=== PATIENT | male | born 1945 | race Caucasian/White ===

== ENCOUNTER 2016-12-22 11:37 | Outpatient (CLI) | payer OTHER ==
[~2016-12-22 11:37] MED LIST: ASPI-1063 PO; CLOP75TA2 PO; COR6.25 PO; EZET10TA PO; LIP80 PO; RANO500T2 PO
== END 2016-12-22 17:54 | disposition home or self-care (01) ==
LOC: SRD 11:37
PROVIDERS: ATTEND Family Medicine
DX: I25.119 Atherosclerotic heart disease of native coronary artery with unspecified angina pectoris (principal); I51.7 Cardiomegaly; J44.9 Chronic obstructive pulmonary disease, unspecified
CPT/HCPCS: 71020-TC

== ENCOUNTER 2017-02-02 22:10 | Inpatient (IN) | payer OTHER ==
[~2017-02-02] VITALS: Ht 170.2 cm; Wt 73.9 kg
[2017-02-02 22:21] VITALS: BP_SYST 106
[2017-02-02] MEDS ORDERED: IPRATROPIUM/ALBUTEROL SULFATE 3 ML AMPUL.NEB INH ONE (22:45)
[2017-02-02] MEDS ORDERED: methylPREDNISolone SOD SUCC/PF 62.5 MG/ML VIAL IVP ONE (22:45)
[2017-02-02 22:51] LABS: BASOPHILS # (AUTO) 0.1 K/uL (0.0-0.2); BASOPHILS % (AUTO) 1.2 % (0.0-2.0); EOSINOPHILS # (AUTO) 0.2 K/uL (0.0-0.4); EOSINOPHILS % (AUTO) 2.1 % (0.0-4.0); HEMATOCRIT 46.3 % (36-54); HEMOGLOBIN 15.3 g/dL (14.0-18.0); LYMPHOCYTES # (AUTO) 2.2 K/uL (1.0-5.5); LYMPHOCYTES % (AUTO) 26.4 % (20.5-51.5); MEAN CORPUSCULAR HEMOGLOBIN 32 pg (27-31); MEAN CORPUSCULAR HGB CONC 33 % (32-36); MEAN CORPUSCULAR VOLUME 95 fL (79.0-98.0); MONOCYTES # (AUTO) 0.9 K/uL (0.0-1.0); MONOCYTES % (AUTO) 10.6 % (1.7-9.3); NEUTROPHILS # (AUTO) 4.8 K/uL (1.8-7.7); NEUTROPHILS % (AUTO) 59.7 % (40.0-70.0); PLATELET COUNT (AUTO) 306 K/uL (130-430); RED BLOOD CELL COUNT(AUTO) 4.88 MIL/uL (4.2-6.2); WHITE BLOOD COUNT (AUTO) 8.2 K/uL (4.8-10.8)
[2017-02-02 23:04] LABS: ANION GAP 10 (5-15); CALCIUM 9.4 mg/dL (8.4-11.0); CHLORIDE 101 mmol/L (98-107); CREATININE 0.76 mg/dL (0.55-1.30); GLUCOSE 113 mg/dL (70-99); POTASSIUM 3.9 mmol/L (3.5-5.1); SODIUM SERUM 133 mmol/L (136-145); UREA NITROGEN, BLOOD 14 mg/dL (8-21)
[2017-02-02 23:08] LABS: ALANINE AMINOTRANSFERASE 21 U/L (12-78); ALBUMIN 3.4 g/dL (3.4-4.8); ASPARTATE AMINOTRANSFERASE 18 U/L (10-37); TOTAL BILIRUBIN 0.4 mg/dL (0.0-1.0)
[2017-02-02] MEDS ORDERED: MORPHINE 4 MG/ML INJ. SYRINGE IVP ONE (23:30)
[2017-02-03] VITALS (16 sets, daily range): BP systolic 109–167
[2017-02-03] MEDS ORDERED: NITROGLYCERIN 0.4 MG TAB.SUBL SL ONE
[2017-02-03] MEDS ORDERED: NITR0.4T6 SL (00:06)
[2017-02-03] MEDS ORDERED: INHALER (00:06)
[2017-02-03] MEDS ORDERED: IPRATROPIUM BROM 0.5 MG/2.5 ML VIAL.NEB (ATROVENT) INH PRN ×2 (01:30→09:15)
[2017-02-03] MEDS ORDERED: *LOVENOX 1MG/KG Q12H/PHARMACY XX ONE (01:30)
[2017-02-03] MEDS ORDERED: LEVALBUTEROL HCL 0.63 MG/3 ML VIAL.NEB INH PRN (01:30)
[2017-02-03] MEDS ORDERED: ACETAMINOPHEN 325 MG TABLET PO PRN (01:30)
[2017-02-03] MEDS ORDERED: HYDROcodone/ACETAMIN 5-325 MG TAB (NORCO/ VICODIN) PO PRN (01:30)
[2017-02-03] MEDS ORDERED: NITROGLYCERIN 0.4 MG TAB.SUBL SL PRN (01:30)
[2017-02-03] MEDS ORDERED: ENOXAPARIN SODIUM 100 MG/ML SYRINGE SUBCUT ONE (01:45)
[2017-02-03] MEDS ORDERED: DILTIAZEM HCL 30 MG TABLET PO ONE (01:45)
[2017-02-03] MEDS ORDERED: FLU VACC QS 2017-18(36MOS+)/PF 0.5 ML/SYR SYRINGE I.M. PRN (02:15)
[2017-02-03] MEDS ORDERED: FLU VACC QS 2017-18(36MOS+)/PF 0.5 ML/SYR SYRINGE I.M. ONE (02:34)
[2017-02-03] MEDS: DILTIAZEM HCL 30 MG TABLET PO SCH ×4 (05:33→23:39)
[2017-02-03] MEDS ORDERED: methylPREDNISolone SOD SUCC/PF 62.5 MG/ML VIAL IVP SCH (06:00)
[2017-02-03 07:09] LABS: ANION GAP 12 (5-15); CALCIUM 8.7 mg/dL (8.4-11.0); CHLORIDE 103 mmol/L (98-107); CREATININE 0.83 mg/dL (0.55-1.30); GLUCOSE 162 mg/dL (70-99); POTASSIUM 4.1 mmol/L (3.5-5.1); SODIUM SERUM 138 mmol/L (136-145); UREA NITROGEN, BLOOD 12 mg/dL (8-21)
[2017-02-03 07:15] LABS: BASOPHILS % (AUTO) 0.1 % (0.0-2.0); EOSINOPHILS % (AUTO) 0.2 % (0.0-4.0); HEMATOCRIT 47.8 % (36-54); HEMOGLOBIN 15.5 g/dL (14.0-18.0); LYMPHOCYTES # (AUTO) 0.8 K/uL (1.0-5.5); LYMPHOCYTES % (AUTO) 10.7 % (20.5-51.5); MEAN CORPUSCULAR HEMOGLOBIN 31 pg (27-31); MEAN CORPUSCULAR HGB CONC 32 % (32-36); MEAN CORPUSCULAR VOLUME 96 fL (79.0-98.0); MONOCYTES # (AUTO) 0.1 K/uL (0.0-1.0); MONOCYTES % (AUTO) 0.8 % (1.7-9.3); NEUTROPHILS # (AUTO) 6.3 K/uL (1.8-7.7); NEUTROPHILS % (AUTO) 88.2 % (40.0-70.0); PLATELET COUNT (AUTO) 310 K/uL (130-430); RED BLOOD CELL COUNT(AUTO) 4.99 MIL/uL (4.2-6.2); RED CELL DISTRIBUTION WIDTH 11.8 % (9.0-15.0); WHITE BLOOD COUNT (AUTO) 7.2 K/uL (4.8-10.8)
[2017-02-03 07:19] LABS: ALANINE AMINOTRANSFERASE 23 U/L (12-78); ALBUMIN 3.6 g/dL (3.4-4.8); ASPARTATE AMINOTRANSFERASE 20 U/L (10-37); TOTAL BILIRUBIN 0.5 mg/dL (0.0-1.0)
[2017-02-03] MEDS: PANTOPRAZOLE SODIUM 40 MG TAB PO SCH (08:30)
[2017-02-03] MEDS: CARVEDILOL 6.25 MG TABLET (COREG) PO SCH (08:30)
[2017-02-03] MEDS: EZETIMIBE 10 MG TABLET PO SCH (08:30)
[2017-02-03] MEDS: CLOPIDOGREL BISULFATE 75 MG TABLET PO SCH (08:30)
[2017-02-03] MEDS: ASPIRIN 81 MG TABLET(ECOTRIN) PO SCH (08:30)
[2017-02-03] MEDS: ATORVASTATIN 20 MG TABLET PO SCH (08:32)
[2017-02-03] MEDS: RANOLAZINE 500 MG TAB.SR.12H PO SCH ×2 (08:33→21:38)
[2017-02-03] MEDS ORDERED: DEXTROSE 50% JECT 50 ML DISP.SYRIN IVP PRN (08:45)
[2017-02-03] MEDS ORDERED: ENOXAPARIN SODIUM 100 MG/ML SYRINGE SUBCUT SCH (09:00)
[2017-02-03] MEDS: INSULIN REGULAR, HUMAN 100 UNITS/ML, 10 ML VIAL (novoLIN R) SUBCUT PRN ×3 (12:04→23:42)
[2017-02-03] MEDS: IPRATROPIUM BROM 0.5 MG/2.5 ML VIAL.NEB (ATROVENT) INH SCH ×2 (13:37→20:18)
[2017-02-03] MEDS: LevALBUTEROL HCL 1.25 MG/0.5 ML *CONC.* VIAL.NEB (XOPENEX CONC.) INH SCH ×2 (13:38→20:19)
[2017-02-03] MEDS: methylPREDNISolone SOD SUCC 40 MG/ML VIAL IVP SCH ×2 (14:41→21:38)
[2017-02-03] MEDS: LEVOFLOXACIN 500 MG/D5W 100 ML IV SCH (21:38)
[2017-02-04] VITALS (7 sets, daily range): BP systolic 103–139
[2017-02-04] MEDS: IPRATROPIUM BROM 0.5 MG/2.5 ML VIAL.NEB (ATROVENT) INH SCH ×4 (01:42→23:56)
[2017-02-04] MEDS: LevALBUTEROL HCL 1.25 MG/0.5 ML *CONC.* VIAL.NEB (XOPENEX CONC.) INH SCH ×4 (01:43→23:56)
[2017-02-04] MEDS: methylPREDNISolone SOD SUCC 40 MG/ML VIAL IVP SCH (06:26)
[2017-02-04] MEDS: DILTIAZEM HCL 30 MG TABLET PO SCH ×3 (06:26→18:02)
[2017-02-04] MEDS: INSULIN REGULAR, HUMAN 100 UNITS/ML, 10 ML VIAL (novoLIN R) SUBCUT PRN (06:28)
[2017-02-04] MEDS: RANOLAZINE 500 MG TAB.SR.12H PO SCH ×2 (09:29→21:32)
[2017-02-04] MEDS: CLOPIDOGREL BISULFATE 75 MG TABLET PO SCH (09:29)
[2017-02-04] MEDS: PANTOPRAZOLE SODIUM 40 MG TAB PO SCH (09:29)
[2017-02-04] MEDS: ASPIRIN 81 MG TABLET(ECOTRIN) PO SCH (09:29)
[2017-02-04] MEDS: EZETIMIBE 10 MG TABLET PO SCH (09:29)
[2017-02-04] MEDS: CARVEDILOL 6.25 MG TABLET (COREG) PO SCH (09:30)
[2017-02-04] MEDS: ATORVASTATIN 20 MG TABLET PO SCH (09:31)
[2017-02-04] MEDS ORDERED: REGADENOSON 0.4 MG/5 ML SYRINGE IVP ONE (13:00)
[2017-02-04] MEDS: PREDNISONE 20 MG TABLET PO SCH (21:32)
[2017-02-04] MEDS: LEVOFLOXACIN 500 MG/D5W 100 ML IV SCH (21:32)
[2017-02-05 00:02] VITALS: BP_SYST 118
[2017-02-05] MEDS: DILTIAZEM HCL 30 MG TABLET PO SCH ×3 (00:11→11:17)
[2017-02-05 04:04] VITALS: BP_SYST 104
[2017-02-05] MEDS: INSULIN REGULAR, HUMAN 100 UNITS/ML, 10 ML VIAL (novoLIN R) SUBCUT PRN ×2 (06:44→11:22)
[2017-02-05] MEDS: IPRATROPIUM BROM 0.5 MG/2.5 ML VIAL.NEB (ATROVENT) INH SCH (07:00)
[2017-02-05] MEDS: LevALBUTEROL HCL 1.25 MG/0.5 ML *CONC.* VIAL.NEB (XOPENEX CONC.) INH SCH (07:00)
[2017-02-05 08:00] VITALS: BP_SYST 133
[2017-02-05] MEDS: RANOLAZINE 500 MG TAB.SR.12H PO SCH (08:11)
[2017-02-05] MEDS: ATORVASTATIN 20 MG TABLET PO SCH (08:11)
[2017-02-05] MEDS: ASPIRIN 81 MG TABLET(ECOTRIN) PO SCH (08:11)
[2017-02-05] MEDS: PREDNISONE 20 MG TABLET PO SCH (08:12)
[2017-02-05] MEDS: PANTOPRAZOLE SODIUM 40 MG TAB PO SCH (08:12)
[2017-02-05] MEDS: CARVEDILOL 6.25 MG TABLET (COREG) PO SCH (08:13)
[2017-02-05] MEDS: CLOPIDOGREL BISULFATE 75 MG TABLET PO SCH (08:13)
[2017-02-05] MEDS: EZETIMIBE 10 MG TABLET PO SCH (08:13)
[2017-02-05 11:26] VITALS: BP_SYST 145
== END 2017-02-05 12:00 | disposition left against medical advice (07) | DRG 189 ==
LOC: SED 22:10 → SIC 23:38 → STU 02-03 10:10
PROVIDERS: ADMIT Internal Medicine Hospice and Palliative Medicine; ATTEND Internal Medicine Hospice and Palliative Medicine
PROC: 4A02XM4 Measurement of Cardiac Total Activity, External Approach (ICD-10-PCS; principal; 2017-02-04)
PROC: 3E073KZ Introduction of Other Diagnostic Substance into Coronary Artery, Percutaneous Approach (ICD-10-PCS; 2017-02-04)
DX: J96.21 Acute and chronic respiratory failure with hypoxia (principal); E11.22 Type 2 diabetes mellitus with diabetic chronic kidney disease; J44.1 Chronic obstructive pulmonary disease with (acute) exacerbation; I25.110 Atherosclerotic heart disease of native coronary artery with unstable angina pectoris; I48.91 Unspecified atrial fibrillation; G40.909 Epilepsy, unspecified, not intractable, without status epilepticus; I47.1 Supraventricular tachycardia; E78.5 Hyperlipidemia, unspecified; F10.20 Alcohol dependence, uncomplicated; F17.210 Nicotine dependence, cigarettes, uncomplicated; I12.9 Hypertensive chronic kidney disease with stage 1 through stage 4 chronic kidney disease, or unspecified chronic kidney disease; N18.9 Chronic kidney disease, unspecified; Z85.830 Personal history of malignant neoplasm of bone; Z91.19 Patient's noncompliance with other medical treatment and regimen; Z95.1 Presence of aortocoronary bypass graft; Z89.011 Acquired absence of right thumb; Z89.021 Acquired absence of right finger(s); Z79.02 Long term (current) use of antithrombotics/antiplatelets; Z79.82 Long term (current) use of aspirin; Z79.899 Other long term (current) drug therapy; Z95.5 Presence of coronary angioplasty implant and graft; Z53.21 Procedure and treatment not carried out due to patient leaving prior to being seen by health care provider
CPT/HCPCS: 36415; 71010; 80053; 82962; 83880; 84484; 85025; 93005; 93017; 93306; 94640; 94760; 99285; A9500; J1030; J1650; J1956; J2270; J2785; J2930; J7050; J7512; Q2037